=== PATIENT | male | born 1980 | race Caucasian/White ===

== ENCOUNTER 2016-12-11 22:24 | Emergency (ER) | payer SELFPAY ==
[~2016-12-11] VITALS: Ht 185.4 cm; Wt 79.0 kg
[2016-12-12] MEDS ORDERED: PREDNISONE20 MG PO (00:14)
[2016-12-12] MEDS ORDERED: ZANTAC150 MG PO (00:14)
[2016-12-12] MEDS ORDERED: CLARITIN10 MG PO (00:14)
[2016-12-12 00:25] VITALS: BP 134/65
== END 2016-12-12 00:26 | disposition home or self-care (01) ==
LOC: EME 22:24
DX: T63.441A Toxic effect of venom of bees, accidental (unintentional), initial encounter (principal); T78.49XA Other allergy, initial encounter; Z91.030 Bee allergy status; F17.200 Nicotine dependence, unspecified, uncomplicated
CPT/HCPCS: 99281; 99284; J7512